=== PATIENT | female | born 1985 | race Caucasian/White ===

== ENCOUNTER → 2019-11-21 09:50 | Outpatient (BNVA) | payer MEDICAID, SELFPAY | PROVIDERS: Family Provider Nurse Practitioner Family; Visit Provider Nurse Practitioner Family | DX: Z34.91 Encounter for supervision of normal pregnancy, unspecified, first trimester (principal); R50.9 Fever, unspecified; B34.9 Viral infection, unspecified | CPT/HCPCS: 87400 ==

== ENCOUNTER → 2021-06-01 11:57 | Outpatient (BNVA) | payer MEDICAID, SELFPAY | PROVIDERS: Family Provider Nurse Practitioner Family; PCP Nurse Practitioner; Visit Provider Nurse Practitioner | DX: J45.909 Unspecified asthma, uncomplicated (principal); F41.9 Anxiety disorder, unspecified; F32.9 Major depressive disorder, single episode, unspecified; Z30.41 Encounter for surveillance of contraceptive pills; Z13.6 Encounter for screening for cardiovascular disorders | CPT/HCPCS: 80053; 80061; 84443; 85025 ==

== ENCOUNTER → 2021-10-18 10:50 | Outpatient (BNVA) | payer MEDICAID, SELFPAY | PROVIDERS: Family Provider Nurse Practitioner Family; PCP Nurse Practitioner; Visit Provider Nurse Practitioner Family | DX: M25.512 Pain in left shoulder (principal) | CPT/HCPCS: 73030 ==

== ENCOUNTER 2021-11-12 16:09 | Emergency (ER) | payer MEDICAID, SELFPAY ==
[2021-11-12 16:19] VITALS: BP 150/77; PULSE 109; RESP 16; TEMP 36.6; O2SAT 99; BMI 43.8
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
--- NOTE | 2021-11-12 16:40 | XRR_ITS ---
PROCEDURE INFORMATION: Exam: XR Cervical Spine Exam date and time: 11/12/2021 4:40 PM Age: 36 years old Clinical indication: Neck pain TECHNIQUE: Imaging protocol: XR of the cervical spine. Views: 2 or 3 views. COMPARISON: CR XR shoulder LT min 2V* [id number] 10/18/2021 10:52 AM FINDINGS: Bones/joints: Slight reversal of the cervical lordosis. The vertebral body alignment and stature is otherwise intact. The disc spaces are maintained. No fracture or subluxation. Soft tissues: Unremarkable. XR/XR cervical spine 3V* [id number] IMPRESSION: 1. No acute findings.
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
[2021-11-12 16:52] LABS: Basophils # 0.1 10^3/uL (0.0-0.1); Basophils % 0.6 %; Eosinophils # 0.2 10^3/uL (0.0-0.8); Eosinophils % 1.5 %; Hematocrit 39.7 % (37.0-47.0); Hemoglobin 12.9 g/dL (11.5-15.3); Lymphocytes # 2.4 10^3/uL (0.8-4.8); Lymphocytes % 15.8 %; Mean Corpuscular HGB Conc 32.5 g/dL (30.0-36.0); Mean Corpuscular Hemoglobin 29.7 pg (28.0-34.0); Mean Corpuscular Volume 91.5 fl (81-99); Mean Platelet Volume 11.9 fL (7.4-10.4); Monocytes % 6.7 %; Neutrophils # 11.06 10^3/uL (1.8-7.7); Neutrophils % 74.5 %; Nucleated Red Blood Cells % 0 %; Platelet Count 282 10^3/cmm (130-400); Red Blood Count 4.34 10^6/uL (4.1-5.3); Red Cell Distribution Width 17.5 % (12.1-15.1); White Blood Count 14.9 10^3/uL (4.0-10.0)
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
[2021-11-12 17:53] VITALS: BP 140/89; PULSE 89; RESP 18; O2SAT 99
[2021-11-12] MEDS: HYDROcodone-acetaminophen 10-325 mg Tablet 1 TAB PO (18:03)
[2021-11-12 18:38] LABS: Anion Gap 15.6 (5-19); Blood Urea Nitrogen 13 mg/dL (6-20); Calcium 9.4 mg/dL (8.5-10.5); Carbon Dioxide 23 mmol/L (22-29); Chloride 101 mmol/L (98-107); Glomerular Filtration Rate 141.2 mL/min (90-130); Glucose 100 mg/dL (65-115); Osmolality Calculated 282 mOsm/kg (285-295); Potassium 3.6 mmol/L (3.5-5.1); Sodium 136 mmol/L (136-145)
== END 2021-11-12 18:26 | disposition home or self-care (01) ==
PROVIDERS: Emergency Provider Family Medicine; PCP Nurse Practitioner
DX: S09.90XA Unspecified injury of head, initial encounter (principal); S40.212A Abrasion of left shoulder, initial encounter; V47.5XXA Car driver injured in collision with fixed or stationary object in traffic accident, initial encounter; Z87.891 Personal history of nicotine dependence
CPT/HCPCS: 36415; 70450; 72040; 73130; 80048; 85025; 99283

== ENCOUNTER 2021-11-30 17:36 | Emergency (ER) | payer MEDICAID, SELFPAY ==
[2021-11-30 17:57] VITALS: BP 148/77; PULSE 76; RESP 20; TEMP 36.8; O2SAT 98; BMI 42.3
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
== END 2021-11-30 18:50 | disposition home or self-care (01) ==
PROVIDERS: Emergency Provider Nurse Practitioner Family; PCP Nurse Practitioner
DX: S39.012A Strain of muscle, fascia and tendon of lower back, initial encounter (principal); V89.2XXA Person injured in unspecified motor-vehicle accident, traffic, initial encounter
CPT/HCPCS: 72100; 99282

== ENCOUNTER → 2022-02-11 11:47 | Outpatient (BNVA) | payer MEDICAID, SELFPAY | PROVIDERS: PCP Nurse Practitioner; Visit Provider Family Medicine | DX: Z30.41 Encounter for surveillance of contraceptive pills (principal); J30.9 Allergic rhinitis, unspecified; T14.8XXA Other injury of unspecified body region, initial encounter; M54.9 Dorsalgia, unspecified | CPT/HCPCS: 81025 ==

== ENCOUNTER 2022-04-01 06:00 | Outpatient (RCR) | payer MEDICAID, SELFPAY | END 2022-04-03 23:55 | disposition home or self-care (01) | LOC: APT 06:00 | PROVIDERS: PCP Nurse Practitioner; Referring Provider Family Medicine; Visit Provider Family Medicine | DX: M54.9 Dorsalgia, unspecified (principal); G89.29 Other chronic pain | CPT/HCPCS: 97110; 97162 ==

== ENCOUNTER 2023-01-26 09:05 | Outpatient (CLI) | payer MEDICAID, SELFPAY ==
--- NOTE | 2023-01-26 09:14 | XR_ITS ---
WS: [id number] Lumbar spine, 3 views, 01/26/2023 Clinical Data: LUMBAR PAIN Comparison: Lumbar spine, 11/30/2021 Findings: No compression fractures or subluxation is seen. There is degenerative disc narrowing at L4-L5 and L5 -S1 unchanged. There is a gentle dextroscoliosis. The transverse processes and SI joints are normal. There is a large amount of fecal material in the colon. XR/XR lumbar spine 2-3V* [id number] Impression: 1. Degenerative disc narrowing at L4-L5 and L5-S1. 2. Dextroscoliosis.
== END 2023-01-26 09:06 | disposition home or self-care (01) ==
LOC: RAD 09:09
PROVIDERS: PCP Nurse Practitioner Family; Visit Provider Nurse Practitioner Family
DX: M51.37 Other intervertebral disc degeneration, lumbosacral region (principal); M48.07 Spinal stenosis, lumbosacral region; M41.86 Other forms of scoliosis, lumbar region
CPT/HCPCS: 72100